=== PATIENT | male | born 1965 | race Caucasian/White ===

== ENCOUNTER 2018-03-18 06:51 | Emergency (ER) | payer MEDICAID ==
[~2018-03-18] VITALS: Ht 172.7 cm; Wt 90.9 kg
[2018-03-18 07:07] VITALS: Ht 172.7 cm; Wt 90.9 kg
[2018-03-18] MEDS ORDERED: DOXYCYCLINE HYC75 MG PO (07:11)
[2018-03-18] MEDS ORDERED: MOBIC7.5 MG PO (07:11)
[2018-03-18] MEDS ORDERED: LIPITOR20 MG PO (07:11)
[2018-03-18] MEDS ORDERED: TESSALON PERLE100 MG PO (07:12)
[2018-03-18] MEDS ORDERED: ALBUTEROL2.5 MG/3 M INH (07:14)
[2018-03-18] MEDS ORDERED: CHRONULAC30 ML PO (07:15)
[2018-03-18] MEDS ORDERED: ALBUTEROL SULF8.5 GM INH (07:15)
[2018-03-18 08:26] LABS: BASOPHILS 1.2 % (0-2); EOSINOPHILS 9.5 % (0-7); HEMOGLOBIN 14.8 g/dL (13.5-17.5); IMMATURE GRANULOCYTES 0.3 % (0-5); LYMPHOCYTES 27.2 % (15-50); MCH 30.7 pg (26.0-34.0); MCHC 34.4 g/dL (31.0-37.0); MCV 89.2 fL (80.0-100.0); MEAN PLATELET VOLUME 9.3 fL (7.4-10.4); MONOCYTES 8.9 % (2-11); NEUTROPHILS 52.9 % (40-80); PLATELET COUNT 363 10x3/uL (130-400); RBC 4.82 10x6/uL (4.20-6.10); RDW 12.5 % (11.5-14.5); WBC 9.9 10x3/uL (4.8-10.8)
[2018-03-18 08:48] LABS: ALBUMIN 3.9 g/dL (3.4-5.0); ALKALINE PHOSPHATASE 81 U/L (46-116); ALT (SGPT) 28 U/L (10-68); AMYLASE - SERUM 120 U/L (25-115); BILIRUBIN - TOTAL 1.14 mg/dL (0.2-1.3); CALC OSMOLALITY 280 mosm/kg (275-300); CALCIUM 9.1 mg/dL (8.5-10.1); CARBON DIOXIDE 23.6 mmol/L (21.0-32.0); CHLORIDE - SERUM 103 mmol/L (98-107); CREATININE - SERUM 0.8 mg/dL (0.6-1.3); GLUCOSE 100 mg/dL (74-106); LIPASE 294 U/L (73-393); POTASSIUM - SERUM 4.2 mmol/L (3.5-5.1); PROTEIN - SERUM 7.7 g/dL (6.4-8.2); SODIUM 139 mmol/L (136-145); UREA NITROGEN 22 mg/dL (7-18); eGFR NON AFRICAN AMERICAN > 90 mL/min (90-120)
[2018-03-18] MEDS ORDERED: ULTRAM50 MG PO (10:06)
[2018-03-18] MEDS ORDERED: NAPROSYN500 MG PO (10:06)
[2018-03-18 10:25] VITALS: BP 160/81
== END 2018-03-18 10:20 | disposition home or self-care (01) ==
LOC: D.ER 06:51
PROVIDERS: Family Medicine
DX: M94.0 Chondrocostal junction syndrome [Tietze] (principal)